=== PATIENT | male | born 1995 | race Caucasian/White ===

== ENCOUNTER 2018-02-08 19:41 | Emergency (ER) | payer OTHER ==
[~2018-02-08] VITALS: Ht 182.9 cm; Wt 90.0 kg
[2018-02-08 19:45] VITALS: BP 124/68
[2018-02-08 20:40] LABS: MICROSCOPIC NOT IND
[2018-02-08 20:41] LABS: BASOPHILS # (AUTO) 0.04 x10^3/uL (0-0.1); BASOPHILS % (AUTO) 1 % (0-1); EOSINOPHILS # (AUTO) 0.11 x10^3/uL (0-0.4); EOSINOPHILS % (AUTO) 1 % (1-7); LYMPHOCYTES # (AUTO) 1.34 x10^3/uL (1-3.4); LYMPHOCYTES % (AUTO) 16 % (22-44); MD NO; MEAN CORPUSCULAR HEMOGLOBIN 29.9 pg (27.5-34.5); MEAN CORPUSCULAR HGB CONC 34.5 g/dL (33.2-36.2); MEAN CORPUSCULAR VOLUME 86.9 fL (81-97); MEAN PLATELET VOLUME 8.1 fL (7.4-10.4); MONOCYTES # (AUTO) 0.51 x10^3/uL (0.2-0.8); MONOCYTES % (AUTO) 6 % (2-9); NEUTROPHILS # (AUTO) 6.24 x10^3/uL (1.8-6.8); NEUTROPHILS % (AUTO) 76 % (42-75); PLATELET COUNT 241 x10^3/uL (130-400); RED BLOOD COUNT 5.35 x10^6/uL (4.38-5.82); RED CELL DISTRIBUTION WIDTH 13.1 % (9.4-14.8)
[2018-02-08 20:44] LABS: CULTURE INDICATED? NO
[2018-02-08 20:51] LABS: ALANINE AMINOTRANSFERASE 31 U/L (12-78); ALBUMIN 4.5 g/dL (3.4-5.0); ANION GAP 11 mmol/L (5-15); CHLORIDE 103 mmol/L (98-107)
[2018-02-08 20:52] LABS: ALKALINE PHOSPHATASE 72 U/L (45-117); BILIRUBIN,TOTAL 0.4 mg/dL (0.2-1.0); TOTAL PROTEIN 8.2 g/dL (6.4-8.2)
[2018-02-08 20:55] LABS: TROPONIN I < 0.015 ng/mL (0.000-0.045)
== END 2018-02-08 22:01 | disposition home or self-care (01) ==
LOC: ED 21:45
DX: S01.81XA Laceration without foreign body of other part of head, initial encounter (principal); R55 Syncope and collapse; W18.09XA Striking against other object with subsequent fall, initial encounter; Y93.89 Activity, other specified; Y92.511 Restaurant or cafe as the place of occurrence of the external cause; Y99.8 Other external cause status
CPT/HCPCS: 12011; 36415; 71045; 80053; 81003; 84484; 85025; 93005; 99285